=== PATIENT | female | born 1975 | race Caucasian/White ===

== ENCOUNTER 2019-02-05 16:10 | Emergency (ER) | payer OTHER ==
[~2019-02-05] VITALS: Ht 162.6 cm; Wt 59.1 kg
[2019-02-05] MEDS ORDERED: GLIP5 PO (16:18)
[2019-02-05] MEDS ORDERED: METF-960 PO (16:18)
[2019-02-05] MEDS ORDERED: LOVA20 PO (16:18)
[2019-02-05 16:27] LABS: GLUCOSE,POINT OF CARE 121 MG/DL (70-110)
[2019-02-05] MEDS ORDERED: BACITRACIN 0.9 GM PACKET OINTMENT TP ONE (17:45)
[2019-02-05 18:10] VITALS: BP 118/85
== END 2019-02-05 18:15 | disposition home or self-care (01) ==
LOC: EMS 16:14
DX: S01.01XA Laceration without foreign body of scalp, initial encounter (principal); E11.9 Type 2 diabetes mellitus without complications; E78.00 Pure hypercholesterolemia, unspecified; Z79.84 Long term (current) use of oral hypoglycemic drugs; W18.09XA Striking against other object with subsequent fall, initial encounter; Y93.89 Activity, other specified; Y92.89 Other specified places as the place of occurrence of the external cause; Y99.8 Other external cause status
CPT/HCPCS: 12001